=== PATIENT | male | born 1995 | race African-American/Black ===

== ENCOUNTER 2024-01-13 08:15 | Emergency (ER) | payer MEDICAID ==
[~2024-01-13] VITALS: Ht 180.3 cm; Wt 90.0 kg
[2024-01-13 08:26] VITALS: O2SAT 97
[2024-01-13] MEDS ORDERED: KETOROLAC 15MG/ML VIAL IM ONE (08:45)
[2024-01-13] MEDS: KETOROLAC 15MG/ML VIAL IM NR (10:46)
[2024-01-13 11:00] VITALS: BP 133/58; PULSE 78; RESP 21; TEMP 98.2
== END 2024-01-13 11:36 | disposition home or self-care (01) ==
LOC: ER 08:31
DX: I88.9 Nonspecific lymphadenitis, unspecified (principal); Z98.890 Other specified postprocedural states
CPT/HCPCS: 96372; 99283; J1885; Z7610